=== PATIENT | male | born 1995 | race American Indian/Alaskan Native ===

== ENCOUNTER 2021-09-17 22:33 | Emergency (ER) | payer SELFPAY ==
[2021-09-17 23:18] VITALS: BP 119/61
--- NOTE | 2021-09-17 23:46 | XRay Report ---
CHEST 2 VIEWS INDICATION / CLINICAL INFORMATION: CHEST PAIN. COMPARISON: Chest x-ray 10/04/2014 FINDINGS: SUPPORT DEVICES: None. HEART / MEDIASTINUM: Heart size and mediastinal contour appear within normal limits. LUNGS / PLEURA: No significant pulmonary or pleural abnormality. No pneumothorax. BONES: No significant osseous abnormality. ADDITIONAL FINDINGS: No significant additional findings. IMPRESSION: 1. No active cardiopulmonary disease. Signer Name: Mejia Ferro II, MD Signed: 09/17/2021 11:41 PM Workstation Name: [id number]
--- NOTE | 2021-09-20 18:49 | Electrocardiograph Report ---
[facility] Test Date: 2021-09-17 Test Time: 22:39:42 Pat Name: JOSÉ LUIS ROD Department: Room: Gender: M Pumper Head: MELI : 1995 Requested By: ED DOC Order Number: [id number] Reading MD: Becky King Measurements Intervals [place] Rate: 58 P: 75 MA: 188 QRS: 98 QRSD: 90 T: 45 QT: 389 QTc: 381 Interpretive Statements Sinus bradycardia Right axis deviation, consider lead malposition Normal early repol pattern No previous ECG available for comparison Electronically Signed On 09-20-2021 18:49:17 EDT by Becky King
== END 2021-09-18 17:24 | disposition left against medical advice (07) ==
LOC: ED 22:33
DX: R07.89 Other chest pain (principal); Z53.21 Procedure and treatment not carried out due to patient leaving prior to being seen by health care provider
CPT/HCPCS: 71046; 93005